=== PATIENT | female | born 1960 | race Caucasian/White ===

== ENCOUNTER 2016-06-11 18:31 | Inpatient (IN) | payer OTHER, MEDICAID, MEDICARE ==
[~2016-06-11] VITALS: Ht 165.1 cm; Wt 91.3 kg
[2016-06-11 18:33] VITALS: BP 156/87; PULSE 89; RESP 22; TEMP 98.9; O2SAT 92
[2016-06-11] MEDS ORDERED: OXYC-395 PO (18:48)
[2016-06-11] MEDS ORDERED: SIMV40TA PO (18:48)
[2016-06-11] MEDS ORDERED: CILO50TA PO (18:48)
[2016-06-11] MEDS ORDERED: MONT10TA4 PO (18:48)
[2016-06-11] MEDS ORDERED: FURO20TA PO (18:48)
[2016-06-11] MEDS ORDERED: ZOLP10TA3 PO (18:48)
[2016-06-11] MEDS ORDERED: GEMF600T PO (18:48)
[2016-06-11] MEDS ORDERED: SERT-129 PO (18:48)
[2016-06-11] MEDS ORDERED: LYRI75CA PO (18:48)
[2016-06-11] MEDS ORDERED: METF500T PO (18:48)
[2016-06-11] MEDS ORDERED: ASPI1TAB69 PO (18:48)
--- NOTE | 2016-06-11 18:55 | PD ---
HPI Chief Complaint: Respiratory Symptoms Time Seen by Provider: 18:41 Travel History International Travel<30 days: No Contact w/Intl Traveler<30days: No Traveled to known affect area: No History of Present Illness HPI 56yo F with PMH of COPD (on home O2 2L NC not compliant on oxygen use), DM, ? CHF on lasix presents to the ED with c/o sob for 1 week. Pt saw her PMD in [place] today and had outpatient CXR that showed left lower lobe pneumonia. Pt was prescribed an inhaler but not prescribed any antibiotics. Pt is still a cigarette smoker. +Tactile fever. Denies any chest pain, n/v, abdominal pain, focal weakness or numbness. PFSH Past Medical History Hx Anticoagulant Therapy: Yes (81 MG ASA) Cardiovascular Problems: Yes (HTN) Diabetes: Yes (TYPE2 ) Respiratory: Yes (COPD) ?: Not Social History Tobacco Use: Yes Allergies-Medications (Allergen,Severity, Reaction): Coded Allergies: No Known Allergies (Unverified , 06/11/16) Reported Meds & Prescriptions Reported Meds & Active Scripts Active Reported Oxycodone (Oxycodone HCl) 10 Mg Tab 10 Mg PO BID PRN Cilostazol 50 Mg Tab 50 Mg PO BID Lyrica (Pregabalin) 75 Mg Cap 75 Mg PO BID Zolpidem (Zolpidem Tartrate) 10 Mg Tab 10 Mg PO HS PRN Simvastatin 40 Mg Tab 40 Mg PO HS Furosemide 20 Mg Tab 20 Mg PO DAILY Aspirin 81 Mg Tabdr 81 Mg PO DAILY Sertraline (Sertraline HCl) 100 Mg Tab 100 Mg PO DAILY Montelukast (Montelukast Sodium) 10 Mg Tab 10 Mg PO HS Gemfibrozil 600 Mg Tab 600 Mg PO HS Take 30 minutes prior to breakfast and dinner. Metformin (Metformin HCl) 500 Mg Tab 500 Mg PO BIDPC With meals Review of Systems Except as stated in HPI: all other systems reviewed are Neg Physical Exam Narrative GENERAL: 56yo F not in distress. SKIN: Warm and dry. HEAD: Atraumatic. Normocephalic. EYES: Pupils equal and round. No scleral icterus. No injection or drainage. ENT: No nasal bleeding or discharge. Mucous membranes pink and moist. NECK: Trachea midline. No JVD. CARDIOVASCULAR: Regular rate and rhythm. No murmur appreciated. RESPIRATORY: No accessory muscle use. Coarse breath sounds bilaterally, with end expiratory wheezing. Pt is speaking in complete sentences. GASTROINTESTINAL: Abdomen soft, non-tender, nondistended. Hepatic and splenic margins not palpable. MUSCULOSKELETAL: No obvious deformities. No clubbing. No cyanosis. +bilateral pitting edema that has not change for months. NEUROLOGICAL: Awake and alert. No obvious cranial nerve deficits. Motor grossly within normal limits. Normal speech. PSYCHIATRIC: Appropriate mood and affect; insight and judgment normal. Data Data Last Documented VS Vital Signs Date Time Temp Pulse Resp B/P Pulse Ox O2 Delivery O2 Flow Rate FiO2 06/11/16 19:33 73 18 151/69 96 Aerosol Mask 06/11/16 19:23 2.00 06/11/16 18:33 98.9 Orders Complete Blood Count With Diff (06/11/16 18:50) Basic Metabolic Panel (Bmp) (06/11/16 18:50) B-Type Natriuretic Peptide (06/11/16 18:50) Act Partial Throm Time (Ptt) (06/11/16 18:50) Prothrombin Time / Inr (Pt) (06/11/16 18:50) Magnesium (Mg) (06/11/16 18:50) Ckmb (Isoenzyme) Profile (06/11/16 18:50) Troponin I (06/11/16 18:50) Arterial Blood Gas (Abg) (06/11/16 18:50) Blood Culture (06/11/16 18:50) Iv Access Insert/Monitor (06/11/16 18:50) Electrocardiogram (06/11/16 18:50) Ecg Monitoring (06/11/16 18:50) Oximetry (06/11/16 18:50) Oxygen Administration (06/11/16 18:50) Chest, Single Ap (06/11/16 18:50) Sodium Chloride 0.9% Flush (Ns Flush) (06/11/16 19:00) Methylprednisolone So Succ Inj (Solumedr (06/11/16 19:00) Albuterol-Ipratropium Neb (Duoneb Neb) (06/11/16 19:00) Lactic Acid Sepsis Protocol (06/11/16 18:55) Acetaminophen (Tylenol) (06/11/16 19:30) Ceftriaxone Inj (Rocephin Inj) (06/11/16 20:00) Azithromycin Inj (Zithromax Inj) (06/11/16 20:00) Potassium Chloride (Kcl) (06/11/16 20:00) Methylprednisolone So Succ Inj (Solumedr (06/12/16 02:00) Bedside Glucose OPAL.AC&HS (06/11/16 19:59) ^ Blood Glucose Goal (Criteria (06/11/16 19:59) ^ Hypoglycemia 51 - 69 Mg/Dl (06/11/16 19:59) ^ Hypoglycemia 50 Mg/Dl Or < (06/11/16 19:59) ^ Notify Dr: Other (06/11/16 19:59) Dextrose 50% In [place] (Vial) Inj (D50w (Vi (06/11/16 20:00) Glucagon Inj (Glucagon Inj) (06/11/16 20:00) Insulin Aspart Supplemtl Scale (Novolog (06/11/16 21:00) Albuterol-Ipratropium Neb (Duoneb Neb) (06/11/16 20:00) Albuterol-Ipratropium Neb (Duoneb Neb) (06/11/16 20:00) Guaifenesin Er (Mucinex Er) (06/11/16 21:00) Ceftriaxone Inj (Rocephin Inj) (06/12/16 20:00) Azithromycin Inj (Zithromax Inj) (06/12/16 20:00) Budeson-Formot 160-4.5 Mg Inh (Symbicort (06/11/16 21:00) Admit To Inpatient (06/11/16 ) Vital Signs (Adult) Q4H (06/11/16 19:59) Activity Oob Ad Aniya (06/11/16 19:59) Insulation Extruder Operator / Telemetry .CONTINUOUS (06/11/16 19:59) Diet 1800 Ada Cons Carb (06/12/16 Breakfast) Sodium Chloride 0.9% Flush (Ns Flush) (06/11/16 20:00) Sodium Chloride 0.9% Flush (Ns Flush) (06/11/16 21:00) Ondansetron Inj (Zofran Inj) (06/11/16 20:00) Bisacodyl Supp (Dulcolax Supp) (06/11/16 20:00) Comprehensive Metabolic Panel (06/12/16 06:00) Complete Blood Count With Diff (06/12/16 06:00) Scd Bilateral/Knee High OPAL.BID (06/11/16 19:59) Louie Bilateral/Knee High OPAL.QSHIFT (06/11/16 19:59) Acetaminophen (Tylenol) (06/11/16 20:00) Morphine Inj (Morphine Inj) (06/11/16 20:00) Oxycodone (Roxicodone) (06/11/16 20:00) Inpatient Certification (06/11/16 ) Aspirin Ec (Ecotrin Ec) (06/12/16 09:00) Cilostazol (Pletal) (06/11/16 21:00) Furosemide (Lasix) (06/12/16 09:00) Gemfibrozil (Lopid) (06/11/16 21:00) Metformin (Glucophage) (06/12/16 09:00) Montelukast (Singulair) (06/11/16 21:00) Pregabalin (Lyrica) (06/11/16 21:00) Sertraline (Zoloft) (06/12/16 09:00) Zolpidem (Ambien) (06/11/16 20:00) Pravastatin (Pravachol) (06/11/16 21:00) Admit Order (Ed Use Only) (06/11/16 20:05) Labs Laboratory Tests Test 06/11/16 06/11/16 19:00 19:05 Blood Gas Puncture Site RT RADIAL Blood Gas Patient Temperature 98.6 Blood Gas HCO3 27 mmol/L Blood Gas Base Excess 3.2 mmol/L Blood Gas Oxygen Saturation 86 % Arterial Blood pH 7.45 Arterial Blood Partial 40 mmHG Pressure CO2 Arterial Blood Partial 58 mmHG Pressure O2 Arterial Blood Oxygen Content 15.4 Vol % Arterial Blood 3.7 % Carboxyhemoglobin Arterial Blood Methemoglobin 1.1 % Blood Gas Hemoglobin 12.8 G/DL Oxygen Delivery Device ROOM AIR Blood Gas Inspired Oxygen 21 % White Blood Count 11.9 TH/MM3 Red Blood Count 4.43 MIL/MM3 Hemoglobin 13.2 GM/DL Hematocrit 37.9 % Mean Corpuscular Volume 85.5 FL Mean Corpuscular Hemoglobin 29.9 PG Mean Corpuscular Hemoglobin 34.9 % Concent Red Cell Distribution Width 13.4 % Platelet Count 316 TH/MM3 Mean Platelet Volume 7.7 FL Neutrophils (%) (Auto) 70.0 % Lymphocytes (%) (Auto) 21.2 % Monocytes (%) (Auto) 6.2 % Eosinophils (%) (Auto) 2.1 % Basophils (%) (Auto) 0.5 % Neutrophils # (Auto) 8.4 TH/MM3 Lymphocytes # (Auto) 2.5 TH/MM3 Monocytes # (Auto) 0.7 TH/MM3 Eosinophils # (Auto) 0.2 TH/MM3 Basophils # (Auto) 0.1 TH/MM3 CBC Comment DIFF FINAL Differential Comment Prothrombin Time 11.3 SEC Prothromb Time International 1.0 RATIO Ratio Activated Partial 28.2 SEC Thromboplast Time Sodium Level 142 MEQ/L Potassium Level 3.1 MEQ/L Chloride Level 105 MEQ/L Carbon Dioxide Level 28.1 MEQ/L Anion Gap 9 MEQ/L Blood Urea Nitrogen 10 MG/DL Creatinine 0.79 MG/DL Estimat Glomerular Filtration 75 ML/MIN Rate Random Glucose 133 MG/DL Lactic Acid Level 1.4 mmol/L Calcium Level 9.0 MG/DL Magnesium Level 1.6 MG/DL Total Creatine Kinase 51 U/L Troponin I LESS THAN 0.02 NG/ML B-Type Natriuretic Peptide 31 PG/ML MDM Medical Decision Making Medical Screen Exam Complete: Yes Emergency Medical Condition: Yes Interpretation(s) EKG: NSR 70bpm. Normal axis. No ST segment elevation or depression. Differential Diagnosis COPD exacerbation vs. Pneumonia vs. Bronchitis vs. ACS vs. CHF exacerbation Narrative Course 56yo F with COPD here with worsening sob for 1 week. Pt with tactile fever and cough. ABG showed O2sat of 86% and pO2 58 on room air. Pt saturating at 93% on 2L NC. Wheezing initially on exam so given methylprednisolone and duonebs x3. Labs reviewed, mild leukocytosis at 11.9. Lactic acid normal at 1.4. Hypokalemia at 3.1, replaced orally with 40mEq KCl. Troponin negative. CXR showed mild bibasilar consolidation. Blood cultures drawn and pt given ceftriaxone and azithromycin. Discussed with Dr. Meza and accepted for COPD exacerbation and Pneumonia. Diagnosis Primary Impression: Pneumonia Qualified Code: J18.9 - Pneumonia of both lower lobes due to infectious organism Additional Impression: COPD exacerbation Admitting Information Admitting Physician Requests: Admit Chen,Alis DO Jun 11, 2016 18:55
[2016-06-11] MEDS ORDERED: methylPREDNISolone SOD SUCC 125 MG/2 ML VIAL IVP ONE (19:00)
[2016-06-11] MEDS ORDERED: SODIUM CHLORIDE 0.9% FLUSH 5 ML FLUSH IVF PRN (19:00)
[2016-06-11] MEDS: RESP: ALBUTEROL 2.5 MG/IPRATROPIUM 0.5 MG NEB (SCH) INH ×3 (19:05→19:23)
[2016-06-11 19:08] LABS: BLOOD GAS BASE EXCESS 3.2 mmol/L (-2-2); BLOOD GAS HCO3 27 mmol/L (22-26); BLOOD GAS PCO2 40 mmHG (38-42); BLOOD GAS PO2 58 mmHG (61-120)
[2016-06-11 19:09] LABS: BLOOD GAS CARBOXYHEMOGLOBIN 3.7 % (0-4); BLOOD GAS METHEMOGLOBIN 1.1 % (0-2); BLOOD GAS O2 HGB SATURATION 86 % (90-100); BLOOD GAS OXYGEN CONTENT 15.4 Vol % (12.0-20.0); BLOOD GAS TOTAL HGB 12.8 G/DL (12.0-16.0); CRITICAL VALUE YES; DRAW SITE RT RADIAL; FIO2 21 %; NUMBER OF ARTERIAL PUNCTURES 1; OXYGEN DEVICE ROOM AIR; STAT YES; TEMP CORR TO 98.6; ULNAR PULSE PRESENT
[2016-06-11 19:17] LABS: AUTOMATED NEUTROPHIL # 8.4 TH/MM3 (1.8-7.7); BASOPHIL # 0.1 TH/MM3 (0-0.2); BASOPHIL % 0.5 % (0.0-2.0); EOSINOPHIL # 0.2 TH/MM3 (0-0.4); EOSINOPHIL % 2.1 % (0.0-4.0); HEMATOCRIT 37.9 % (35.0-46.0); HEMO FLAGS DIFF FINAL; LYMPH % 21.2 % (9.0-44.0); LYMPHOCYTE # 2.5 TH/MM3 (1.0-4.8); MEAN CELL VOLUME 85.5 FL (80.0-100.0); MEAN CORPUSCULAR HEMOGLOBIN 29.9 PG (27.0-34.0); MEAN CORPUSCULAR HGB CONC 34.9 % (32.0-36.0); MONO % 6.2 % (0.0-8.0); PLATELET COUNT 316 TH/MM3 (150-450); RED BLOOD COUNT 4.43 MIL/MM3 (4.00-5.30); RED CELL DISTRIBUTION WIDTH 13.4 % (11.6-17.2); WHITE BLOOD COUNT 11.9 TH/MM3 (4.0-11.0)
--- NOTE | 2016-06-11 19:22 | RADHPO ---
EXAM DATE/TIME: 06/11/2016 19:13 [place] COMPARISON: No previous studies available for comparison. INDICATIONS : Shortness of breath. MEDICAL HISTORY : Hypertension. Hypercholesterolemia. Diabetes mellitus type II. SURGICAL HISTORY : None. ENCOUNTER: Initial ACUITY: 1 day PAIN SCORE: 2/10 LOCATION: Bilateral chest FINDINGS: Mild bibasilar parenchymal opacities are seen, left more so than right. No perceptible pleural effusi on. No pneumothorax. Heart size within normal limits. CONCLUSION: Mild bibasilar consolidation. José Luis Schuler MD on June 11, 2016 at 19:19 Board Certified Radiologist. This report was verified electronically.
[2016-06-11 19:23] VITALS: O2SAT 96
[2016-06-11 19:28] LABS: CHLORIDE 105 MEQ/L (98-107); POTASSIUM 3.1 MEQ/L (3.5-5.1); SODIUM (NA) 142 MEQ/L (136-145)
[2016-06-11] MEDS ORDERED: ACETAMINOPHEN 325 MG TAB PO ONE (19:30)
[2016-06-11 19:31] LABS: ANION GAP 9 MEQ/L (5-15); BICARBONATE 28.1 MEQ/L (21.0-32.0); BLOOD UREA NITROGEN 10 MG/DL (7-18); MAGNESIUM 1.6 MG/DL (1.5-2.5)
[2016-06-11 19:33] VITALS: BP 151/69; PULSE 73; RESP 18; O2SAT 96
[2016-06-11 19:33] LABS: APTT (PATIENT) 28.2 SEC (24.3-30.1); PROTHROMBIN TIME - PATIENT 11.3 SEC (9.8-11.6)
[2016-06-11 19:34] LABS: GLOMERULAR FILTRATION RATE 75 ML/MIN (>89)
[2016-06-11 19:51] LABS: CREATINE KINASE 51 U/L (26-192)
[2016-06-11] MEDS ORDERED: RESP: ALBUTEROL 2.5 MG/IPRATROPIUM 0.5 MG NEB (PRN) NEB (20:00)
[2016-06-11] MEDS ORDERED: SODIUM CHLORIDE 0.9% FLUSH 5 ML FLUSH FLUSH PRN (20:00)
[2016-06-11] MEDS ORDERED: POTASSIUM CHLORIDE 20 MEQ CONTROLLED RELEASE TAB PO ONE (20:00)
[2016-06-11] MEDS ORDERED: ACETAMINOPHEN 325 MG TAB PO PRN (20:00)
[2016-06-11] MEDS ORDERED: ONDANSETRON HCL 4 MG/2 ML VIAL IVP PRN (20:00)
[2016-06-11] MEDS ORDERED: GLUCAGON 1 MG/ML VIAL OTHER PRN (20:00)
[2016-06-11] MEDS ORDERED: MORPHINE SULFATE 4 MG/ML INJ IV PRN (20:00)
[2016-06-11] MEDS ORDERED: BISACODYL 10 MG SUPP PR PRN (20:00)
[2016-06-11] MEDS ORDERED: DEXTROSE 50% IN WATER 50 ML VIAL(D50) IV PUSH PRN (20:00)
[2016-06-11] MEDS ORDERED: ZOLPIDEM TARTRATE 10 MG TAB PO PRN (20:00)
[2016-06-11] MEDS: RESP: ALBUTEROL 2.5 MG/IPRATROPIUM 0.5 MG NEB (SCH) NEB (20:00)
[2016-06-11] MEDS ORDERED: AZITHROMYCIN INJ 500 MG in SODIUM CHLOR 0.9% 250 ML INJ 250 ML IV ONE (20:00)
[2016-06-11] MEDS ORDERED: cefTRIAXone INJ 1,000 MG in SODIUM CHLORIDE 0.9% INJ 100 ML IV ONE (20:00)
[2016-06-11 20:48] VITALS: BP 144/71; PULSE 73; RESP 18; TEMP 97.9; O2SAT 92
[2016-06-11] MEDS: INSULIN ASPART SUPPLEMENTAL SCALE SQ SCH (20:56)
[2016-06-11] MEDS ORDERED: MONTELUKAST SODIUM 10 MG TAB PO SCH (21:00)
[2016-06-11] MEDS ORDERED: GEMFIBROZIL 600 MG TAB PO SCH (21:00)
[2016-06-11] MEDS ORDERED: PRAVASTATIN SOD 40 MG TAB PO SCH (21:00)
[2016-06-11] MEDS: BUDESONIDE-FORMOTEROL 160/4.5 MCG INHALER INH SCH (21:35)
[2016-06-11] MEDS: guaiFENesin E.R. 600 MG TAB PO SCH (21:37)
[2016-06-11] MEDS: CILOSTAZOL 50 MG TAB PO SCH (21:38)
[2016-06-11] MEDS: PREGABALIN 75 MG CAP PO SCH (21:38)
[2016-06-11] MEDS: SODIUM CHLORIDE 0.9% FLUSH 5 ML FLUSH FLUSH SCH (21:41)
[2016-06-11 23:32] VITALS: BP 135/65; PULSE 86; RESP 18; O2SAT 93
[2016-06-12] VITALS (8 sets, daily range): BP systolic 125–139; BP diastolic 65–95; PULSE 70–108; RESP 18–20; TEMP 96.2–98.4; O2SAT 89–96
[2016-06-12] MEDS: methylPREDNISolone SOD SUCC 40 MG/1 ML VIAL IV PUSH SCH ×3 (00:48→15:01)
[2016-06-12 05:55] LABS: AUTOMATED NEUTROPHIL # 8.9 TH/MM3 (1.8-7.7); BASOPHIL % 0.2 % (0.0-2.0); EOSINOPHIL % 0.1 % (0.0-4.0); HEMATOCRIT 38.1 % (35.0-46.0); HEMO FLAGS DIFF FINAL; LYMPHOCYTE # 0.8 TH/MM3 (1.0-4.8); MEAN CELL VOLUME 86.2 FL (80.0-100.0); MEAN CORPUSCULAR HEMOGLOBIN 29.8 PG (27.0-34.0); MEAN CORPUSCULAR HGB CONC 34.5 % (32.0-36.0); MONO % 1.2 % (0.0-8.0); NEUT % 90.5 % (16.0-70.0); PLATELET COUNT 311 TH/MM3 (150-450); RED BLOOD COUNT 4.41 MIL/MM3 (4.00-5.30); RED CELL DISTRIBUTION WIDTH 13.3 % (11.6-17.2); WHITE BLOOD COUNT 9.8 TH/MM3 (4.0-11.0)
[2016-06-12 06:09] LABS: CHLORIDE 103 MEQ/L (98-107); POTASSIUM 3.7 MEQ/L (3.5-5.1); SODIUM (NA) 141 MEQ/L (136-145)
[2016-06-12 06:15] LABS: ANION GAP 10 MEQ/L (5-15); BICARBONATE 27.7 MEQ/L (21.0-32.0); BLOOD UREA NITROGEN 11 MG/DL (7-18)
[2016-06-12 06:18] LABS: ALT (GPT) 22 U/L (10-53); AST (GOT) 11 U/L (15-37); GLOMERULAR FILTRATION RATE 64 ML/MIN (>89)
[2016-06-12 06:20] LABS: TOTAL BILIRUBIN ADULT 0.3 MG/DL (0.2-1.0)
[2016-06-12 06:21] LABS: ALKALINE PHOSPHATASE 78 U/L (45-117)
[2016-06-12] MEDS: INSULIN ASPART SUPPLEMENTAL SCALE SQ SCH ×2 (06:23→11:40)
[2016-06-12] MEDS: RESP: ALBUTEROL 2.5 MG/IPRATROPIUM 0.5 MG NEB (SCH) NEB ×2 (07:36→11:33)
[2016-06-12] MEDS: CILOSTAZOL 50 MG TAB PO SCH (08:00)
[2016-06-12] MEDS: PREGABALIN 75 MG CAP PO SCH (08:02)
[2016-06-12] MEDS: SODIUM CHLORIDE 0.9% FLUSH 5 ML FLUSH FLUSH SCH (08:02)
[2016-06-12] MEDS: guaiFENesin E.R. 600 MG TAB PO SCH (08:02)
[2016-06-12] MEDS: BUDESONIDE-FORMOTEROL 160/4.5 MCG INHALER INH SCH (08:02)
--- NOTE | 2016-06-12 08:45 | HHI.HP ---
[facility] Non[facility]Staff Admission Diagnosis Pneumonia, COPD exacerbation Diagnoses: (1) COPD exacerbation Diagnosis: Principal (2) Pneumonia Diagnosis: Principal (3) Chronic respiratory failure Diagnosis: Secondary (4) Hyperlipidemia Diagnosis: Secondary (5) Diabetes Diagnosis: Secondary Chief Complaint: Shortness breath, dyspnea, nonproductive cough Travel History International Travel<30 Days: No Contact w/Intl Traveler <30 Da: No Traveled to Known Affected Are: No History of Present Illness 56-year-old female with known history of chronic hypoxic respiratory failure, chronic obstructive pulmonary disease, hyperlipidemia, diabetes presented to hospital because of shortness of breath, dyspnea and nonproductive cough. Patient states her symptoms have been ongoing for over a week. She has been to her primary medical doctor's office 3 times. She states that she was given an injection of antibiotic 2 times. Her last visit to the doctor's office was yesterday in which they ordered a x-ray. She had an outpatient x- ray performed which did show pneumonia and that primary medical doctor requested the patient come back in to the office for reevaluation. Patient did not want to do that so they've recommended her to go to the ER for evaluation. Patient had workup done emergency department and indicated her chronic hypoxic respiratory failure, chest x-ray indicating mild bibasilar consolidation. Patient is afebrile, no leukocytosis. Patient does have chronic hypoxic respiratory failure which she is supposed to be on oxygen 2 L at home, she openly admits that she does not use it all the time. That she has been using her nebulizer machine 4 times daily. Patient denies any chest pain, dull pain, nausea, vomiting, diaphoresis, diarrhea, constipation. Patient was evaluated in emergency department. She was initially hypoxic on room air. Patient was placed on 2 L nasal cannula when she is most use a home with improvement of her O2 saturations. It was recommended by the ER physician that patient be admitted for further evaluation management. Upon evaluating the patient this morning she states that he is feeling much better. She is actually 60% improved from yesterday. She still has a dry nonproductive cough requesting medication that could help expectorate Review of Systems Constitutional: DENIES: Diaphoretic episodes, Fatigue, Fever, Weight gain, Weight loss, Chills, Dizziness, Change in appetite, Night Sweats Eyes: DENIES: Blurred vision, Diplopia, Eye inflammation, Eye pain, Vision loss , Double Vision Ears, nose, mouth, throat: DENIES: Vertigo, Nasal discharge, Throat pain, Ear Pain, Running Nose, Sinus Pain Respiratory: COMPLAINS OF: Cough, Shortness of breath, DENIES: Apneas, Snoring , Wheezing, Hemoptysis, Sputum production Cardiovascular: DENIES: Chest pain, Palpitations, Syncope, Dyspnea on Exertion , Lower Extremity Edema, Orthopnea Gastrointestinal: DENIES: Abdominal pain, Black stools, Bloody stools, Constipation, Diarrhea, Nausea, Vomiting, Difficulty Swallowing, Anorexia Neurologic: DENIES: Abnormal gait, Headache, Localized weakness, Paresthesias, Seizures, Speech Problems, Tremor, Poor Balance Past Family Social History Past Medical History Chronic hypoxic respiratory failure Chronic obstructive pulmonary disease Hyperlipidemia Diabetes Obstructive sleep apnea Gastroesophageal reflux Past Surgical History Lung biopsy Right knee arthroscopic surgery Hysterectomy Reported Medications Reported Meds & Active Scripts Active Reported Oxycodone (Oxycodone HCl) 10 Mg Tab 10 Mg PO BID PRN Cilostazol 50 Mg Tab 50 Mg PO BID Lyrica (Pregabalin) 75 Mg Cap 75 Mg PO BID Zolpidem (Zolpidem Tartrate) 10 Mg Tab 10 Mg PO HS PRN Simvastatin 40 Mg Tab 40 Mg PO HS Furosemide 20 Mg Tab 20 Mg PO DAILY Aspirin 81 Mg Tabdr 81 Mg PO DAILY Sertraline (Sertraline HCl) 100 Mg Tab 100 Mg PO DAILY Montelukast (Montelukast Sodium) 10 Mg Tab 10 Mg PO HS Gemfibrozil 600 Mg Tab 600 Mg PO HS Take 30 minutes prior to breakfast and dinner. Metformin (Metformin HCl) 500 Mg Tab 500 Mg PO BIDPC With meals Allergies: Coded Allergies: No Known Allergies (Unverified , 06/11/16) Family History Reviewed is significant for mother from bone cancer. Significant for father having heart disease, cancer. Sister with breast cancer Social History Patient smokes a pack a cigarettes a day since she was 6 years old. She denies any alcohol or illicit drugs Physical Exam Vital Signs Vital Signs Date Time Temp Pulse Resp B/P Pulse Ox O2 Delivery O2 Flow Rate FiO2 2/3/17 07:38 94 Nasal Cannula 2.00 06/12/16 05:00 97.8 74 18 125/71 91 06/12/16 04:00 96.2 108 18 137/95 96 06/12/16 02:00 97.8 79 20 139/65 90 06/12/16 01:00 70 06/12/16 00:00 97.8 79 20 139/65 89 06/11/16 23:32 86 18 135/65 93 Nasal Cannula 3 06/11/16 20:48 97.9 73 18 144/71 92 Nasal Cannula 2 06/11/16 19:33 73 18 151/69 96 Aerosol Mask 06/11/16 19:29 95 Aerosol Mask 06/11/16 19:23 96 Nasal Cannula 2.00 06/11/16 19:15 Nasal Cannula 2.00 06/11/16 19:05 Room Air 06/11/16 18:33 98.9 89 22 156/87 92 Physical Exam GENERAL: Well-developed, well-nourished, in no acute distress. alert and orientated HEENT: Head is normocephalic without any lesions or masses noted. Facial features are symmetric. Eyes: Pupils equal round reactive to light. Extraocular muscles are intact. Conjunctivae were clear. Oropharyngeal: Pharynx without any erythema edema. Tongue is midline without deviation. Buccal mucosa is moist without any masses or lesions NECK: Supple without any masses. Trachea midline no deviation. No JVD, no bruits are appreciated CARDIAC: Regular rhythm, regular rate. S1/S2 are heard. No murmurs gallops or rubs. LUNGS: Crackles noted in the bases. No wheeze, rhonchi or rales. No use of accessory muscles on inspiration or expiration. ABDOMEN: Soft, nontender. Nondistended. Bowel sounds heard in all 4 quadrants. No organomegaly or masses. Negative rebound, negative guarding EXTREMITIES: No edema, pulses are equal bilaterally. No cyanosis or clubbing NEUROLOGY: Mood and affect appear appropriate. Cranial nerves II through XII grossly intact. Muscle strength 5/5 in upper and lower extremities bilaterally. Deep tendon reflexes are 2+ in upper and lower extremities bilaterally. Laboratory Laboratory Tests Test 06/11/16 06/11/16 06/12/16 19:00 19:05 05:10 Blood Gas Puncture Site RT RADIAL Blood Gas Patient Temperature 98.6 Blood Gas HCO3 27 Blood Gas Base Excess 3.2 Blood Gas Oxygen Saturation 86 Arterial Blood pH 7.45 Arterial Blood Partial 40 Pressure CO2 Arterial Blood Partial 58 Pressure O2 Arterial Blood Oxygen Content 15.4 Arterial Blood 3.7 Carboxyhemoglobin Arterial Blood Methemoglobin 1.1 Blood Gas Hemoglobin 12.8 Oxygen Delivery Device ROOM AIR Blood Gas Inspired Oxygen 21 White Blood Count 11.9 9.8 Red Blood Count 4.43 4.41 Hemoglobin 13.2 13.1 Hematocrit 37.9 38.1 Mean Corpuscular Volume 85.5 86.2 Mean Corpuscular Hemoglobin 29.9 29.8 Mean Corpuscular Hemoglobin 34.9 34.5 Concent Red Cell Distribution Width 13.4 13.3 Platelet Count 316 311 Mean Platelet Volume 7.7 8.1 Neutrophils (%) (Auto) 70.0 90.5 Lymphocytes (%) (Auto) 21.2 8.0 Monocytes (%) (Auto) 6.2 1.2 Eosinophils (%) (Auto) 2.1 0.1 Basophils (%) (Auto) 0.5 0.2 Neutrophils # (Auto) 8.4 8.9 Lymphocytes # (Auto) 2.5 0.8 Monocytes # (Auto) 0.7 0.1 Eosinophils # (Auto) 0.2 0.0 Basophils # (Auto) 0.1 0.0 CBC Comment DIFF FINAL DIFF FINAL Differential Comment Prothrombin Time 11.3 Prothromb Time International 1.0 Ratio Activated Partial 28.2 Thromboplast Time Sodium Level 142 141 Potassium Level 3.1 3.7 Chloride Level 105 103 Carbon Dioxide Level 28.1 27.7 Anion Gap 9 10 Blood Urea Nitrogen 10 11 Creatinine 0.79 0.91 Estimat Glomerular Filtration 75 64 Rate Random Glucose 133 225 Lactic Acid Level 1.4 Calcium Level 9.0 8.7 Magnesium Level 1.6 Total Creatine Kinase 51 Troponin I LESS THAN 0.02 B-Type Natriuretic Peptide 31 Total Bilirubin 0.3 Aspartate Amino Transf 11 (AST/SGOT) Alanine Aminotransferase 22 (ALT/SGPT) Alkaline Phosphatase 78 Total Protein 7.2 Albumin 3.0 Date/Time Procedure Status Source Growth 06/11/16 19:10 Aerobic Blood Culture Received Blood Peripheral Pending 06/11/16 19:10 Anaerobic Blood Culture Received Blood Peripheral Pending Result Diagram: 06/12/16 0510 06/12/16 0510 Imaging Last Impressions Chest X-Ray 06/11/16 1850 Signed Impressions: Service Date/Time: June 19:13 - CONCLUSION: Mild bibasilar consolidation. José Luis Schuler MD Assessment and Plan Assessment and Plan Chronic obstructive pulmonary disease with acute exacerbation Continue O2 supplementation maintain O2 sats greater than 92% Continue Rocephin and Zithromax Continue Solu-Medrol 40 mg every 6 hours Continue nebulizer treatments Continue Symbicort Continue Mucinex Start Acapella and incentive spirometry Chest x-ray with bibasilar consolidations, possible underlying pneumonia Patient afebrile, no leukocytosis Continue antibiotics for community-acquired pneumonia to include Rocephin and Zithromax Chronic hypoxic respiratory failure She counseled on compliancy of her oxygen use in outpatient setting Diabetes Home medications have been continued Accu-Cheks with sliding scale insulin Hyperlipidemia Continue home medications DVT prevention Sequential compression devices Written by Rudi Mayorga PA-C, acting as scribe for Dr. Kemp on 06/12/16 at 1155. The documentation accurately reflects the work and decisions performed face-to- face by Dr. Kemp on 06/12/16 at 1155. Discharge Disposition Discharge home in stable condition Activity: ad Aniya Diet: Healthy heart diet Medication per medication reconciliation sheet follow up with primary medical doctor in 1 week Physician Certification 2 Midnight Certification Type: Admission for Inpatient Services Order for Inpatient Services The services are ordered in accordance with Medicare regulations or non- Medicare payer requirements, as applicable. In the case of services not specified as inpatient-only, they are appropriately provided as inpatient services in accordance with the 2-midnight benchmark. Estimated LOS (days): 1-2 days is the estimated time the patient will need to remain in the hospital, assuming treatment plan goals are met and no additional complications. Post-Hospital Plan: Not yet determined Problem Qualifiers (1) Pneumonia: Qualified Code: J18.9 - Pneumonia of both lower lobes due to infectious organism (2) Chronic respiratory failure: Qualified Code: J96.11 - Chronic respiratory failure with hypoxia (3) Hyperlipidemia: Qualified Code: E78.5 - Hyperlipidemia, unspecified hyperlipidemia type (4) Diabetes: Qualified Code: E11.8 - Type 2 diabetes mellitus with complication, without long-term current use of insulin Rudi Mayorga Jun 12, 2016 08:45
[2016-06-12] MEDS ORDERED: SERTRALINE HCL 100 MG TAB PO SCH (09:00)
[2016-06-12] MEDS ORDERED: metFORMIN HCL 500 MG TAB PO SCH (09:00)
[2016-06-12] MEDS ORDERED: FUROSEMIDE 20 MG TAB PO SCH (09:00)
[2016-06-12] MEDS ORDERED: ASPIRIN EC 81 MG TABEC PO SCH (09:00)
--- NOTE | 2016-06-12 11:58 | HHI.DCPOC ---
Discharge Care Plan Diagnosis: (1) COPD exacerbation (2) Pneumonia (3) Chronic respiratory failure Goals to Promote Your Health * To prevent worsening of your condition and complications * To maintain your health at the optimal level Directions to Meet Your Goals Take your medications as prescribed Follow your dietary instruction Follow activity as directed Keep your appointments as scheduled Take your immunizations and boosters as scheduled If your symptoms worsen call your PCP, if no PCP go to Urgent Care Center or Emergency Room Smoking is Dangerous to Your Health. Avoid second hand smoke Call the 24-hour hour crisis hotline for domestic abuse at Rudi Mayorga Jun 12, 2016 11:58
[2016-06-12] MEDS ORDERED: PRED5PAK PO (12:34)
[2016-06-12] MEDS ORDERED: LEVA750T PO (12:34)
--- NOTE | 2016-06-12 13:34 | EKG ---
Date Performed: 06/11/2016 Time Performed: 19:40:04 PTAGE: 56 years EKG: Sinus rhythm Low QRS voltages in precordial leads Borderline ECG NO PREVIOUS TRACING DOCTOR: Zara San Interpretating Date/Time 06/12/2016 13:32:53
[2016-06-12] MEDS ORDERED: cefTRIAXone INJ 1,000 MG in SODIUM CHLORIDE 0.9% INJ 100 ML IV SCH (20:00)
[2016-06-12] MEDS ORDERED: AZITHROMYCIN INJ 500 MG in SODIUM CHLOR 0.9% 250 ML INJ 250 ML IV SCH (20:00)
== END 2016-06-12 15:42 | disposition home or self-care (01) | DRG 190 ==
LOC: PHED 18:31 → PHEDA 20:05 → PH3A 23:55
PROVIDERS: ADMIT Family Medicine; ATTEND Family Medicine
DX: J44.0 Chronic obstructive pulmonary disease with (acute) lower respiratory infection (principal); J18.9 Pneumonia, unspecified organism; J96.11 Chronic respiratory failure with hypoxia; Z99.81 Dependence on supplemental oxygen; I50.9 Heart failure, unspecified; J44.1 Chronic obstructive pulmonary disease with (acute) exacerbation; F17.210 Nicotine dependence, cigarettes, uncomplicated; E78.5 Hyperlipidemia, unspecified; E11.9 Type 2 diabetes mellitus without complications; Z79.84 Long term (current) use of oral hypoglycemic drugs; G47.33 Obstructive sleep apnea (adult) (pediatric); K21.9 Gastro-esophageal reflux disease without esophagitis; I10 Essential (primary) hypertension; Z79.82 Long term (current) use of aspirin; E87.6 Hypokalemia; Z91.19 Patient's noncompliance with other medical treatment and regimen
CPT/HCPCS: 36600; 71010; 80048; 80053; 82550; 82805; 82948; 83605; 83735; 83880; 84484; 85025; 85610; 85730; 87040; 87804; 93005; 94150; 94640; 94664; 94667; 96374; 96375; J0456; J0696; J1815; J2920; J2930; J7050

== ENCOUNTER 2017-10-11 19:11 | Emergency (ER) | payer MEDICAID, MEDICARE, OTHER ==
[~2017-10-11] VITALS: Ht 165.1 cm; Wt 94.8 kg
[~2017-10-11 19:11] MED LIST: ASPI1TAB69 PO; CILO50TA PO; FURO20TA PO; GEMF600T PO; LEVA750T PO; LYRI75CA PO; METF500T PO; MONT10TA4 PO; OXYC-395 PO; PRED5PAK PO; SERT-129 PO; SIMV40TA PO; ZOLP10TA3 PO
[2017-10-11 19:20] VITALS: BP 119/58; PULSE 91; RESP 18; TEMP 97.7; O2SAT 93
[2017-10-11 19:50] VITALS: BP_SYST 109; BP_SYST 119; BP_SYST 85; BP_DIAS 59; BP_DIAS 62; BP_DIAS 75; RESP 18
[2017-10-11 19:55] VITALS: BP 119/75; PULSE 98; RESP 18; O2SAT 91
[2017-10-11] MEDS ORDERED: SODIUM CHLOR 0.9% 1000 ML INJ 1,000 ML IV ONE (20:00)
[2017-10-11 20:28] LABS: AUTOMATED NEUTROPHIL # 5.9 TH/MM3 (1.8-7.7); BASOPHIL # 0.1 TH/MM3 (0-0.2); BASOPHIL % 0.8 % (0.0-2.0); EOSINOPHIL # 0.3 TH/MM3 (0-0.4); EOSINOPHIL % 3.2 % (0.0-4.0); HEMATOCRIT 40.8 % (35.0-46.0); HEMOGLOBIN 13.4 GM/DL (11.6-15.3); LYMPHOCYTE # 2.7 TH/MM3 (1.0-4.8); MEAN CELL VOLUME 87.5 FL (80.0-100.0); MEAN CORPUSCULAR HEMOGLOBIN 28.8 PG (27.0-34.0); MEAN CORPUSCULAR HGB CONC 32.9 % (32.0-36.0); MONO % 8.5 % (0.0-8.0); MONOCYTE # 0.8 TH/MM3 (0-0.9); NEUT % 60.5 % (16.0-70.0); PLATELET COUNT 268 TH/MM3 (150-450); RED BLOOD COUNT 4.66 MIL/MM3 (4.00-5.30); RED CELL DISTRIBUTION WIDTH 12.5 % (11.6-17.2); WHITE BLOOD COUNT 9.8 TH/MM3 (4.0-11.0)
[2017-10-11 20:28] LABS: BLOOD, URINE NEG (NEG); GLUCOSE,URINE NEG (NEG); KETONE, URINE TRACE mg/dL (NEG); NITRITE,URINE NEG (NEG); PH, URINE 5.5 (5.0-8.5); URINE COLOR YELLOW (YELLW/STRAW); URINE LEUKOCYTE ESTERASE NEG (NEG)
--- NOTE | 2017-10-11 20:32 | PD ---
HPI Chief Complaint: Dizziness Time Seen by Provider: 19:44 Travel History International Travel<30 days: No Contact w/Intl Traveler<30days: No Traveled to known affect area: No History of Present Illness HPI 57-year-old female presented the ER for evaluation of dizziness that started this morning, dizziness episodes occurred 3 times, she states they lasted for about 20 minutes, she describes them as lightheadedness and dizziness associated with blurred vision every time she gets up from a chair, no spinning sensation, no headache or fever, no sweating, no palpitations no chest pain or shortness of breath. Patient is a history of hypertension and takes lisinopril for. No abdominal pain, no weakness or loss of sensation, no slurred speech. He did have those episodes in the past and what could be the reason for her dizziness, she says that she does not feel dizzy right now. PFSH Past Medical History Hx Anticoagulant Therapy: Yes (ASA) Arthritis: Yes Asthma: Yes Autoimmune Disease: No Anxiety: No Depression: Yes Heart Rhythm Problems: No Cancer: No Cardiac Catheterization: Yes Cardiovascular Problems: Yes High Cholesterol: Yes Chest Pain: No Congestive Heart Failure: No COPD: Yes Diabetes: Yes Endocrine: Yes GERD: Yes Genitourinary: No Hiatal Hernia: Yes Herniated Disk: Yes (LUMBAR) Hypertension: Yes Immune Disorder: No Insomnia: Yes Musculoskeletal: Yes Neurologic: No Psychiatric: Yes Reproductive: No Respiratory: Yes (ASTHMA COPD) Pneumonia: Yes Sleep Apnea: Yes (USES CPAP) Thyroid Disease: No Ulcer: No ?: Not Menopausal: Yes : 0 Ovarian Cysts: Yes (RIGHT) Past Surgical History Abdominal Surgery: No AICD: No Arteriovenous Shunt: No Cardiac Surgery: No Ear Surgery: No Endocrine Surgery: No Eye Surgery: No Genitourinary Surgery: No Gynecologic Surgery: Yes (hysterectomy 987) Hysterectomy: Yes Insulin Pump: No Joint Replacement: No Oral Surgery: No Pacemaker: No Thoracic Surgery: Yes (lung biopsy 06) Other Surgery: Yes (LEFT LUNG BIOPSY: 2005 FOUND EMPHYSEMA) Social History Alcohol Use: Yes ("ONCE A YEAR") Tobacco Use: Yes Substance Use: No Allergies-Medications (Allergen,Severity, Reaction): Coded Allergies: No Known Allergies (Unverified Adverse Reaction, Unknown, 10/11/17) Reported Meds & Prescriptions Reported Meds & Active Scripts Active Prednisone (21) 5 mg tab Dose Pack (Prednisone) 5 Mg Dspk 5 Mg PO DIRECTED Levaquin (Levofloxacin) 750 Mg Tab 750 Mg PO DAILY Reported Oxycodone (Oxycodone HCl) 10 Mg Tab 10 Mg PO BID PRN Cilostazol 50 Mg Tab 50 Mg PO BID Lyrica (Pregabalin) 75 Mg Cap 75 Mg PO BID Zolpidem (Zolpidem Tartrate) 10 Mg Tab 10 Mg PO HS PRN Simvastatin 40 Mg Tab 40 Mg PO HS Furosemide 20 Mg Tab 20 Mg PO DAILY Aspirin 81 Mg Tabdr 81 Mg PO DAILY Sertraline (Sertraline HCl) 100 Mg Tab 100 Mg PO DAILY Montelukast (Montelukast Sodium) 10 Mg Tab 10 Mg PO HS Gemfibrozil 600 Mg Tab 600 Mg PO HS Take 30 minutes prior to breakfast and dinner. Metformin (Metformin HCl) 500 Mg Tab 500 Mg PO BIDPC With meals Review of Systems Except as stated in HPI: all other systems reviewed are Neg Physical Exam Narrative GENERAL: Alert oriented 3 no acute distress, orthostatic blood pressure supine 119/75 pulse 98, sitting 85/59 pulse 99 SKIN: Focused skin assessment warm/dry. HEAD: Atraumatic. Normocephalic. EYES: Pupils equal and round. No scleral icterus. No injection or drainage. ENT: No nasal bleeding or discharge. Mucous membranes pink and moist. NECK: Trachea midline. No JVD. CARDIOVASCULAR: Regular rate and rhythm. No murmur appreciated. RESPIRATORY: No accessory muscle use. Clear to auscultation. Breath sounds equal bilaterally. GASTROINTESTINAL: Abdomen soft, non-tender, nondistended. Hepatic and splenic margins not palpable. MUSCULOSKELETAL: No obvious deformities. No clubbing. No cyanosis. No edema. NEUROLOGICAL: Awake and alert. No obvious cranial nerve deficits. Motor grossly within normal limits. Normal speech. PSYCHIATRIC: Appropriate mood and affect; insight and judgment normal. Data Data Last Documented VS Vital Signs Date Time Temp Pulse Resp B/P (MAP) Pulse Ox O2 Delivery O2 Flow Rate FiO2 10/11/17 20:44 98 18 91 Room Air 10/11/17 19:55 119/75 (90) 10/11/17 19:20 97.7 Orders Orders Complete Blood Count With Diff (10/11/17 19:52) Comprehensive Metabolic Panel (10/11/17 19:52) D-Dimer (10/11/17 19:52) Troponin I (10/11/17 19:52) Electrocardiogram (10/11/17 ) Urinalysis - C+S If Indicated (10/11/17 19:52) Ct Brain W/O Iv Contrast(Rout) (10/11/17 ) Sodium Chlor 0.9% 1000 Ml Inj (Ns 1000 M (10/11/17 20:00) Labs Laboratory Tests Test 10/11/17 20:10 10/11/17 20:15 Urine Color YELLOW Urine Turbidity CLEAR Urine pH 5.5 Urine Specific [place] 1.025 Urine Protein NEG mg/dL Urine Glucose (UA) NEG mg/dL Urine Ketones TRACE mg/dL Urine Occult Blood NEG Urine Nitrite NEG Urine Bilirubin NEG Urine Urobilinogen 0.2 MG/DL Urine Leukocyte Esterase NEG Urine RBC 0-3 /hpf Urine WBC 0-2 /hpf Urine Uric Acid Crystals FEW /hpf Urine Amorphous Sediment FEW Urine Hyaline Casts 3-5 /lpf Urine Mucus FEW /lpf Microscopic Urinalysis Comment CULT NOT INDICATED White Blood Count 9.8 TH/MM3 Red Blood Count 4.66 MIL/MM3 Hemoglobin 13.4 GM/DL Hematocrit 40.8 % Mean Corpuscular Volume 87.5 FL Mean Corpuscular Hemoglobin 28.8 PG Mean Corpuscular Hemoglobin Concent 32.9 % Red Cell Distribution Width 12.5 % Platelet Count 268 TH/MM3 Mean Platelet Volume 8.0 FL Neutrophils (%) (Auto) 60.5 % Lymphocytes (%) (Auto) 27.0 % Monocytes (%) (Auto) 8.5 % Eosinophils (%) (Auto) 3.2 % Basophils (%) (Auto) 0.8 % Neutrophils # (Auto) 5.9 TH/MM3 Lymphocytes # (Auto) 2.7 TH/MM3 Monocytes # (Auto) 0.8 TH/MM3 Eosinophils # (Auto) 0.3 TH/MM3 Basophils # (Auto) 0.1 TH/MM3 CBC Comment DIFF FINAL Differential Comment D-Dimer Quantitative (PE/DVT) 1.11 MG/L FEU Blood Urea Nitrogen 27 MG/DL Creatinine 1.40 MG/DL Random Glucose 110 MG/DL Total Protein 8.1 GM/DL Albumin 4.0 GM/DL Calcium Level 9.7 MG/DL Alkaline Phosphatase 86 U/L Aspartate Amino Transf (AST/SGOT) 15 U/L Alanine Aminotransferase (ALT/SGPT) 28 U/L Total Bilirubin 0.2 MG/DL Sodium Level 137 MEQ/L Potassium Level 3.8 MEQ/L Chloride Level 103 MEQ/L Carbon Dioxide Level 26.2 MEQ/L Anion Gap 8 MEQ/L Estimat Glomerular Filtration Rate 39 ML/MIN Troponin I LESS THAN 0.02 NG/ML MDM Medical Decision Making Medical Screen Exam Complete: Yes Emergency Medical Condition: Yes Differential Diagnosis Orthostatic hypotension, dehydration, intracranial pathology. Narrative Course 57-year-old female presented the ER for evaluation of dizziness, labs show elevated BUN and creatinine, orthostatic hypotension evident by checking orthostatic blood pressure, patient improved after 1 bag of IV fluids and wants to go home although her d-dimer is elevated and BUN and creatinine high and I discussed those results with the patient and I wanted her to be admitted for a VQ scan and further evaluation of the elevated BUN and creatinine but patient refused and wants to sign AMA although she understands the risks of leaving AGAINST MEDICAL ADVICE. Patient is alert oriented 3 and understands condition. Last [address] 10/11/17 0000 Signed Impressions: CONCLUSION: 1. No acute intracranial abnormality. Laboratory Tests Test 10/11/17 20:10 10/11/17 20:15 Urine Color YELLOW Urine Turbidity CLEAR Urine pH 5.5 Urine Specific [place] 1.025 Urine Protein NEG mg/dL Urine Glucose (UA) NEG mg/dL Urine Ketones TRACE mg/dL Urine Occult Blood NEG Urine Nitrite NEG Urine Bilirubin NEG Urine Urobilinogen 0.2 MG/DL Urine Leukocyte Esterase NEG Urine RBC 0-3 /hpf Urine WBC 0-2 /hpf Urine Uric Acid Crystals FEW /hpf Urine Amorphous Sediment FEW Urine Hyaline Casts 3-5 /lpf Urine Mucus FEW /lpf Microscopic Urinalysis Comment CULT NOT INDICATED White Blood Count 9.8 TH/MM3 Red Blood Count 4.66 MIL/MM3 Hemoglobin 13.4 GM/DL Hematocrit 40.8 % Mean Corpuscular Volume 87.5 FL Mean Corpuscular Hemoglobin 28.8 PG Mean Corpuscular Hemoglobin Concent 32.9 % Red Cell Distribution Width 12.5 % Platelet Count 268 TH/MM3 Mean Platelet Volume 8.0 FL Neutrophils (%) (Auto) 60.5 % Lymphocytes (%) (Auto) 27.0 % Monocytes (%) (Auto) 8.5 % Eosinophils (%) (Auto) 3.2 % Basophils (%) (Auto) 0.8 % Neutrophils # (Auto) 5.9 TH/MM3 Lymphocytes # (Auto) 2.7 TH/MM3 Monocytes # (Auto) 0.8 TH/MM3 Eosinophils # (Auto) 0.3 TH/MM3 Basophils # (Auto) 0.1 TH/MM3 CBC Comment DIFF FINAL Differential Comment D-Dimer Quantitative (PE/DVT) 1.11 MG/L FEU Blood Urea Nitrogen 27 MG/DL Creatinine 1.40 MG/DL Random Glucose 110 MG/DL Total Protein 8.1 GM/DL Albumin 4.0 GM/DL Calcium Level 9.7 MG/DL Alkaline Phosphatase 86 U/L Aspartate Amino Transf (AST/SGOT) 15 U/L Alanine Aminotransferase (ALT/SGPT) 28 U/L Total Bilirubin 0.2 MG/DL Sodium Level 137 MEQ/L Potassium Level 3.8 MEQ/L Chloride Level 103 MEQ/L Carbon Dioxide Level 26.2 MEQ/L Anion Gap 8 MEQ/L Estimat Glomerular Filtration Rate 39 ML/MIN Troponin I LESS THAN 0.02 NG/ML Diagnosis Primary Impression: Orthostatic hypotension Additional Impression: Dehydration Disposition: 07 AGAINST MEDICAL ADVICE Condition: Stable Davian Veliz MD Oct 11, 2017 20:32
[2017-10-11 20:34] LABS: CHLORIDE 103 MEQ/L (98-107); SODIUM (NA) 137 MEQ/L (136-145)
[2017-10-11 20:34] LABS: BILIRUBIN, URINE NEG (NEG)
[2017-10-11 20:37] LABS: MUCUS URINE FEW /lpf (OCC)
[2017-10-11 20:37] LABS: CALCIUM 9.7 MG/DL (8.5-10.1)
[2017-10-11 20:38] LABS: RBC, URINE 0-3 /hpf (0-3); WBC, URINE 0-2 /hpf (0-5)
[2017-10-11 20:38] LABS: BICARBONATE 26.2 MEQ/L (21.0-32.0); BLOOD UREA NITROGEN 27 MG/DL (7-18); GLUCOSE,RANDOM 110 MG/DL (74-106)
[2017-10-11 20:41] LABS: ALT (GPT) 28 U/L (10-53); AST (GOT) 15 U/L (15-37); GLOMERULAR FILTRATION RATE 39 ML/MIN (>89)
[2017-10-11 20:42] LABS: AMORPHOUS SEDIMENT, URINE FEW; URIC ACID CRYSTALS, URINE FEW /hpf
[2017-10-11 20:43] LABS: TOTAL BILIRUBIN ADULT 0.2 MG/DL (0.2-1.0); TOTAL PROTEIN 8.1 GM/DL (6.4-8.2)
[2017-10-11 20:44] LABS: ALKALINE PHOSPHATASE 86 U/L (45-117)
[2017-10-11 20:46] LABS: TROPONIN I LESS THAN 0.02 NG/ML (0.02-0.05)
--- NOTE | 2017-10-11 21:20 | RADRPT ---
EXAM DATE: 10/11/2017 8:58 PM EDT AGE/SEX: 57 years / Female INDICATIONS: Dizziness. CLINICAL DATA: This is the patient's initial encounter. Patient reports that signs and symptoms have been present for 1 day and indicates a pain score of 0/10. MEDICAL/SURGICAL HISTORY: Chronic obstructive pulmonary disease. Diabetes. Cardiovascular disease . None. RADIATION DOSE: 53.49 CTDI (mGy) COMPARISON: No prior [place] exams available for comparison. TECHNIQUE: CT of the head without contrast. Using automated exposure control and adjustment of the mA and/or kV according to patient size, radiation dose was kept as low as reasonably achievable to ob tain optimal diagnostic quality images. FINDINGS: Cerebrum: The ventricles are normal for age. No evidence of midline shift, mass lesion, hemorrhage or acute infarction. No extraaxial fluid collections are seen. Posterior Fossa: The cerebellum and brainstem are intact. The 4th ventricle is midline. The cerebe llopontine angle is unremarkable. Extracranial: The visualized portion of the orbits is intact. Skull: The calvaria is intact. No evidence of skull fracture. CONCLUSION: 1. No acute intracranial abnormality. Electronically signed by: Gonsalo Urbina MD 10/11/2017 9:19 PM EDT
[2017-10-11 21:50] VITALS: BP 129/71; PULSE 85; RESP 18; O2SAT 92
[2017-10-11] MEDS ORDERED: CYCL10TA PO (22:32)
[2017-10-11] MEDS ORDERED: LISI20TA PO (22:32)
[2017-10-11] MEDS ORDERED: VENTAER INH (22:32)
[2017-10-11] MEDS ORDERED: FLUT1INH INH (22:32)
[2017-10-11] MEDS ORDERED: DIAZ10TA PO (22:32)
[2017-10-11] MEDS ORDERED: NORT10CA PO (22:32)
[2017-10-11] MEDS ORDERED: MELO7.5T27 PO (22:32)
--- NOTE | 2017-10-12 15:55 | EKG ---
Date Performed: 10/11/2017 Time Performed: 20:01:33 PTAGE: 57 years EKG: Sinus rhythm LOW QRS VOLTAGE IN PRECORDIAL LEADS BORDERLINE ECG Since the PREVIOUS TRACING , no significant change noted PREVIOUS TRACIN06/11/2016 19.40 DOCTOR: Zara San Interpretating Date/Time 10/12/2017 15:54:18
== END 2017-10-11 21:45 | disposition left against medical advice (07) ==
LOC: PHED 19:11
DX: I95.1 Orthostatic hypotension (principal); E86.0 Dehydration; R94.31 Abnormal electrocardiogram [ECG] [EKG]; I10 Essential (primary) hypertension; F32.9 Major depressive disorder, single episode, unspecified; E78.00 Pure hypercholesterolemia, unspecified; E11.9 Type 2 diabetes mellitus without complications; Z72.0 Tobacco use; Z53.20 Procedure and treatment not carried out because of patient's decision for unspecified reasons
CPT/HCPCS: 70450; 80053; 81001; 84484; 85025; 85379; 93005; 96360; 99285; J7030